=== PATIENT | female | born 1950 | race Caucasian/White ===

== ENCOUNTER 2023-04-30 13:16 | Inpatient (IN) | payer OTHER ==
[~2023-04-30] VITALS: Ht 160 cm; Wt 52.2 kg
[~2023-04-30 13:16] MED LIST: CRESTOR20 MG PO; EFFEXOR XR75 MG PO; HORIZANT300 MG PO; HUMALOG MI100 UNIT/2; IRBESARTAN75 MG PO; JANUMET XR 50-1 EAC1 PO
[2023-05-14] MEDS ORDERED: PERCOCET 5-3251 EACH PO (12:13)
[2023-05-14] MEDS ORDERED: MEDROLPACK PO (12:13)
[2023-05-14] MEDS ORDERED: NEURONTIN800 MG PO (12:14)
[2023-05-14] MEDS ORDERED: AMOX-CLAV 875-1 EACH PO (12:14)
[2023-05-14] MEDS ORDERED: COLACE100 MG PO (12:14)
[2023-05-14] MEDS ORDERED: GABAPENTIN100 M2 PO (12:14)
[2023-05-14] MEDS ORDERED: PROMETHAZINE HCL 50 MG/ML AMPUL IM PRN (12:15)
[2023-05-14] MEDS ORDERED: ENALAPRILAT DIHYDRATE 1.25 MG/ML VIAL IV PRN (12:15)
[2023-05-14] MEDS ORDERED: 0.9 % SODIUM CHLORIDE 1,000 ML IV SCH (12:15)
[2023-05-14] MEDS ORDERED: MORPHINE SULFATE 4 MG,MORPHINE SULFATE 2 MG IV SCH (13:00)
[2023-05-14] MEDS ORDERED: DOCUSATE SODIUM 100MG CAP PO SCH (13:00)
[2023-05-14] MEDS ORDERED: CEFAZOLIN SODIUM 1,000 MG VIAL ONE (14:02)
[2023-05-14] MEDS ORDERED: VANCOMYCIN HCL 1,000 MG VIAL ONE ×3 (14:02→22:18)
[2023-05-14] MEDS ORDERED: HEMOSTATIC MATRIX WITH THROMBIN KIT TOP ONE ×3 (15:57→17:45)
[2023-05-14] MEDS ORDERED: IOVERSOL 320 MG/ML - 50 ML VIAL IV ONE ×2 (15:57→22:00)
[2023-05-14] MEDS ORDERED: METHYLPREDNISOLONE ACETATE 40 MG/ML VIAL ONE (16:15)
[2023-05-14] MEDS ORDERED: METHYLPREDNISOLONE SOD SUCC 125 MG VIAL ONE (16:46)
[2023-05-14] MEDS ORDERED: METHYLPREDNISOLONE ACETATE 80 MG/ML VIAL ONE ×2 (16:46→18:08)
[2023-05-14] MEDS ORDERED: FAMOtidine 20 MG TABLET PO SCH (17:00)
[2023-05-14] MEDS ORDERED: CEFAZOLIN SODIUM 1,000 MG in 0.9 % SODIUM CHLORIDE 50 ML IV SCH (17:00)
[2023-05-14] MEDS ORDERED: METHYLPREDNISOLONE SOD SUCC 125 MG VIAL IV SCH (17:00)
[2023-05-14] MEDS ORDERED: VANCOMYCIN HCL 1,000 MG VIAL IV ONE (17:15)
[2023-05-14] MEDS ORDERED: METHYLPREDNISOLONE SOD SUCC 125 MG VIAL IV ONE ×2 (17:15)
[2023-05-14] MEDS ORDERED: CEFAZOLIN SODIUM 1,000 MG VIAL IV ONE (17:15)
[2023-05-14] MEDS ORDERED: ISOPROPYL ALCOHOL 30 ML OUNCE TOP ONE (17:15)
[2023-05-14] MEDS ORDERED: METHYLPREDNISOLONE ACETATE 80 MG/ML VIAL IM ONE (17:15)
[2023-05-14] MEDS ORDERED: VANCOMYCIN HCL 1,000 MG VIAL IR ONE (17:15)
[2023-05-14] MEDS ORDERED: TRANEXAMIC ACID 100MG/1ML (1000MG) AMPUL IV ONE ×2 (17:23→17:45)
[2023-05-14] MEDS ORDERED: VANCOMYCIN HCL 1,000 MG VIAL IV SCH (21:00)
[2023-05-14] MEDS ORDERED: GABAPENTIN 800 MG TABLET PO SCH (21:00)
[2023-05-15] MEDS ORDERED: SODIUM CHLORIDE 0.45 % 1,000 ML IV SCH
[2023-05-15] MEDS ORDERED: OxyCODONE HCL/APAP UD (PERCOCET) PO PRN (06:01)
[2023-05-15 06:32] LABS: HEMATOCRIT 35.2 % (36.0-45.00); HEMOGLOBIN 11.8 g/dL (12.0-15.00); MEAN CELL VOLUME 90.3 fL (80.00-100.00); MEAN CORPUSCULAR HEMOGLOBIN 30.4 pg (27.00-32.0); MEAN CORPUSCULAR HGB CONC 33.6 g/dl (32.0-36.0); RED CELL DISTRIBUTION WIDTH 13.3 % (11.5-14.5)
[2023-05-15 06:35] LABS: PLATELET COUNT 120 K/uL (150-450)
[2023-05-15 07:30] LABS: CALCIUM 9.2 mg/dL (8.5-10.1); CREATININE SERUM 0.54 mg/dL (0.55-1.02); GFR 111.61; POTASSIUM 4.28 mEq/L (3.5-5.1)
[2023-05-15] MEDS ORDERED: TAMSULOSIN HCL 0.4 MG CAP PO SCH (09:00)
[2023-05-15] MEDS ORDERED: IRBESARTAN 75 MG TABLET PO SCH (09:00)
[2023-05-15] MEDS ORDERED: IRBESARTAN 150 MG TABLET PO SCH (09:00)
[2023-05-15] MEDS ORDERED: INSULIN LISPRO 1,000 UNIT/10 ML UNITS SUBCUTANEO PRN (13:00)
[2023-05-15] MEDS ORDERED: DEXTROSE 50 % IN WATER 0.5 G/ML DISP.SYRIN IV PRN (13:00)
== END 2023-05-16 15:30 | disposition home or self-care (01) | DRG 455 ==
LOC: SURH 05-14 11:59 → O/R 05-14 12:08 → SURH 05-14 16:45
PROVIDERS: ADMIT Orthopaedic Surgery Orthopaedic Surgery of the Spine; ATTEND Orthopaedic Surgery Orthopaedic Surgery of the Spine
PROC: 0SG0071 Fusion of Lumbar Vertebral Joint with Autologous Tissue Substitute, Posterior Approach, Posterior Column, Open Approach (ICD-10-PCS; 2023-05-14)
PROC: 0QB30ZZ Excision of Left Pelvic Bone, Open Approach (ICD-10-PCS; 2023-05-14)
PROC: 0ST20ZZ Resection of Lumbar Vertebral Disc, Open Approach (ICD-10-PCS; 2023-05-14)
PROC: 0ST40ZZ Resection of Lumbosacral Disc, Open Approach (ICD-10-PCS; 2023-05-14)
PROC: XRGD0R7 Fusion of Lumbosacral Joint using Custom-Made Anatomically Designed Interbody Fusion Device, Open Approach, New Technology Group 7 (ICD-10-PCS; 2023-05-14)
PROC: 0SG3071 Fusion of Lumbosacral Joint with Autologous Tissue Substitute, Posterior Approach, Posterior Column, Open Approach (ICD-10-PCS; 2023-05-14)
PROC: 07DR0ZZ Extraction of Iliac Bone Marrow, Open Approach (ICD-10-PCS; 2023-05-14)
PROC: 4A1104G Monitoring of Peripheral Nervous Electrical Activity, Intraoperative, Open Approach (ICD-10-PCS; 2023-05-14)
PROC: XRGB0R7 Fusion of Lumbar Vertebral Joint using Custom-Made Anatomically Designed Interbody Fusion Device, Open Approach, New Technology Group 7 (ICD-10-PCS; principal; 2023-05-14 16:45)
PROC: 4A12X4Z Monitoring of Cardiac Electrical Activity, External Approach (ICD-10-PCS; 2023-05-15)
DX: M43.16 Spondylolisthesis, lumbar region (principal); M48.062 Spinal stenosis, lumbar region with neurogenic claudication; M48.07 Spinal stenosis, lumbosacral region; M43.17 Spondylolisthesis, lumbosacral region; M54.17 Radiculopathy, lumbosacral region; I10 Essential (primary) hypertension